=== PATIENT | female | born 1955 | race Caucasian/White ===

== ENCOUNTER 2017-05-05 15:30 | Outpatient (RCR) | payer MEDICARE, MEDICAID, SELFPAY | END 2017-05-16 | LOC: INF 15:30 | PROVIDERS: Family Provider Student in an Organized Health Care Education/Training Program; PCP Family Medicine; Visit Provider Family Medicine | DX: Z45.2 Encounter for adjustment and management of vascular access device (principal) | CPT/HCPCS: 96523 ==

== ENCOUNTER → 2017-08-06 14:41 | Outpatient (CLI) | payer MEDICARE, MEDICAID, SELFPAY ==
--- NOTE | 2017-08-06 15:02 | DI.MG.S_ITS ---
BILATERAL DIGITAL DIAGNOSTIC MAMMOGRAM POST LUMPECTOMY: 08/06/2017 CLINICAL: Left lump with axillary swelling and pain. Family history of breast cancer. Personal history of breast cancer. Comparison is made to exams dated: 02/17/2014 mammogram and 06/26/2009 mammogram - [facility]. There are scattered fibroglandular elements in both breasts. No significant masses, calcifications, or other findings are seen in either breast. IMPRESSION: INCOMPLETE: NEEDS ADDITIONAL IMAGING EVALUATION There is no abnormality seen in the left breast to correspond with the palpable abnormality in the upper outer quadrant, however, ultrasound is recommended. There is no abnormality seen in the left breast to correspond with the pain in the outer aspect, however, clinical followup is recommended. This exam was interpreted at Station ID: [id number]. NOTE: For mammograms, a report in lay terms will be sent to the patient. Approximately 15% of breast malignancies will not be visualized mammographically. In the management of a palpable breast mass, a negative mammogram must not discourage biopsy of a clinically suspicious lesion. Electronically Signed By: Fabio gurrola/catrachita:08/06/2017 15:59:46 letter sent: Need Ultrasound ACR BI-RADS Category 0: Incomplete [id number]
== END ==
PROVIDERS: Family Provider Student in an Organized Health Care Education/Training Program; PCP Family Medicine; Visit Provider Family Medicine
DX: R92.8 Other abnormal and inconclusive findings on diagnostic imaging of breast (principal); N64.4 Mastodynia; N63.21 Unspecified lump in the left breast, upper outer quadrant; Z85.3 Personal history of malignant neoplasm of breast; Z80.3 Family history of malignant neoplasm of breast
CPT/HCPCS: 77066; G0279

== ENCOUNTER → 2017-08-13 16:07 | Outpatient (CLI) | payer MEDICARE, MEDICAID, SELFPAY ==
--- NOTE | 2017-08-13 16:14 | DI.US.S_ITS ---
ULTRASOUND OF LEFT BREAST: 08/13/2017 CLINICAL: Palpable left breast lump and focal pain. Comparison is made to exams dated: 08/06/2017 mammogram, 06/25/2017 ultrasound - [facility], and 02/17/2014 mammogram - [facility]. Ultrasound of the left breast was performed on the area of interest. Guerra scale images of the real-time examination were reviewed. There are biopsy clips left breast at 1 o'clock that likely correlate with palpable abnormality. IMPRESSION: NEGATIVE There is no sonographic evidence of malignancy. A 1 year screening mammogram is recommended. Electronically Signed By: Melodie Medrano M.D. lk/:08/13/2017 17:54:57 letter sent: Clinical Evaluation Ultrasound BI-RADS: 1 Negative
== END ==
PROVIDERS: Family Provider Student in an Organized Health Care Education/Training Program; PCP Family Medicine; Visit Provider Family Medicine
DX: R92.8 Other abnormal and inconclusive findings on diagnostic imaging of breast (principal); N64.4 Mastodynia; N63.21 Unspecified lump in the left breast, upper outer quadrant
CPT/HCPCS: 76642

== ENCOUNTER 2017-09-09 13:13 | Day surgery (SDC) | payer MEDICARE, MEDICAID, SELFPAY ==
--- NOTE | 2017-09-09 | PATH_ITS ---
[facility] Accession Number: [id number] . 01 Material submitted: . PART A: GE JUNCTION PART B: ASCENDING COLON POLYP . 02 Diagnosis: A. Gastroesophageal Junction, Biopsy: Squamocolumnar junctional mucosa with no diagnostic abnormality. Negative for specialized intestinal metaplasia on alcian blue stain. Negative for dysplasia or malignancy. . B. Ascending Colon Polyp: Tubular adenoma. MRV/09/14/2017 . 02 Electronically signed: . Cirilo Evans MD, PhD, Pathologist NPI- [id number] . 01 Gross description: . Part A: GE JUNCTION: Received in formalin are 2 fragment(s) of jara, soft tissue measuring 0.2 x 0.2 x 0.2 cm to 0.2 x 0.2 x 0.1 cm submitted entirely in 1 cassette(s) Part B: ASCENDING COLON POLYP: Received in formalin are 2 fragment(s) of jara, soft tissue measuring 0.2 x 0.2 x 0.2 cm to 0.2 x 0.1 x 0.1 cm submitted entirely in 1 cassette(s) /CKI /CKI . 02 Microscopic: . Part A: An alcian blue stain is performed to evaluate for specialized intestinal metaplasia and is negative for goblet cells. A control stain shows appropriate reactivity. . 02 Pathologist provided ICD-10: D12.2, K21.9 . 02 CPT . 438950, 469467, 368204 Performed at: 01 [facility] [address] [place] [id number] MD Fabio Sahu MD Phone: [phone] Performed at: [address] [facility] [facility] [address] [place], [place] [id number] MD Mariano Machado MD Phone: [phone]
[2017-09-09 14:32] VITALS: BMI 18.3
--- NOTE | 2017-09-09 15:29 | PM.HP.1 ---
History of Present Illness Date Patient Seen: 09/09/17 Time Patient Seen: 15:29 Chief complaint: COLONOSCOPY/EGD W BIOPSY [id number] Narrative: History of Taylor's esophagus and history of colon polyps Patient History Medical History Cervical herniation (Acute) Cervical spine disease (Acute) Foot pain (Acute) Frequent UTI (Acute) History of Taylor's esophagus (Acute) History of COPD (Acute) History of GI bleed (Acute) History of abnormal cervical Pap smear (Acute) History of actinic keratoses (Acute) History of alopecia (Acute) History of anemia (Acute) History of anxiety (Acute) History of arthritis (Acute) History of asthma (Acute) History of breast cancer (Acute) History of carpal tunnel syndrome (Acute) History of chickenpox (Acute) History of colon polyps (Acute) History of depression (Acute) History of diverticulitis (Acute) History of endometriosis (Acute) History of fibromyalgia (Acute) History of genital warts (Acute) History of hepatitis A (Acute) History of hyperparathyroidism (Acute) History of hypothyroidism (Acute) History of kidney disease (Acute) History of measles (Acute) History of migraine headaches (Acute) History of mumps (Acute) History of osteopenia (Acute) History of painful menstruation (Acute) History of posttraumatic stress disorder (PTSD) (Acute) History of retroperitoneal fibrosis (Acute) History of rosacea (Acute) History of tinnitus (Acute) History of vertigo (Acute) Surgical History History of bowel resection (Acute) History of nephrectomy (Acute) History of bowel resection History of nephrectomy Port catheter in place Status post appendectomy Status post breast lumpectomy Status post parathyroidectomy Status post tubal ligation Family & Social History Social History: household members other Meds Home Medications Medication Instructions Recorded Confirmed Type esomeprazole magnesium [Nexium] 40 mg PO QDAY #90 cap 12/01/16 09/09/17 Rx fluticasone [Flonase Allergy 1 spray INTRANASAL QDAY #1 bot 01/27/17 09/09/17 Rx Relief] levothyroxine 88 mcg tablet 88 mcg PO QAM #90 tab 07/17/17 09/09/17 Rx alprazolam 1 mg tablet 1 mg PO QDAYP PRN #90 tab 07/21/17 09/09/17 Rx clonazepam 1 mg tablet 1 mg PO QDAY #90 tab 07/21/17 09/09/17 Rx albuterol sulfate HFA 90 2 puff INHALATION Q4HP PRN #1 inh 08/06/17 09/09/17 Rx mcg/actuation aerosol inhaler oxycodone 10 mg PO Q8HP PRN 09/09/17 09/09/17 History promethazine 25 mg PO Q6HP PRN 09/09/17 09/09/17 History Allergies Allergy/AdvReac Type Severity Reaction Status Date / Time prednisone [PREDNISONE] Allergy Mild very Unverified 05/27/17 12:36 sensitive to adhesive [ADHESIVE] Allergy Unknown Unverified 05/27/17 12:36 cefuroxime [From CEFTIN] Allergy Unknown Unverified 05/27/17 12:36 ciprofloxacin [From CIPRO] Allergy Unknown Unverified 05/27/17 12:36 latex [LATEX] Allergy Unknown Unverified 05/27/17 12:36 monosodium glutamate Allergy Unknown Unverified 05/27/17 12:36 [MONOSODIUM GLUTAMATE] nickel [NICKEL] Allergy Unknown Unverified 05/27/17 12:36 oxycodone [From OXYCONTIN] Allergy Unknown THE TIME Unverified 05/27/17 12:36 RELEASE RESEASLED ALL AT ONCE Exam Narrative Exam Narrative: Oropharynx free of lesion Chest clear to auscultation and percussion Cardiac exam reveals no S3 or murmur Assessment & Plan Plan: Assessment/Plan Narrative: One. History of adenomatous colon polyps with 5 found on last colonoscopy. Need for follow-up colonoscopy at a 3 year interval 2. History of Taylor's esophagus though with negative endoscopy since. Rule out Taylor's esophagus If Taylor's is not present on these biopsies then she should have no further screening. Colonoscopy follow-up with repeat based on the number of polyps found.
--- NOTE | 2017-09-09 16:23 | PM.OP.ENDO ---
Operative Date/Time/Diagnoses Date of procedure: 09/09/17 Time of procedure: 16:23 Pre-op diagnosis: See indication and findings Procedure & Clinicians Study performed: EGD and colonoscopy Same procedure as scheduled: Yes Indications: History of Taylor's esophagus and history of adenomatous colon polyps Surgeon: Jenae Bettencourt Procedure Notes Procedure in detail: After informed consent was obtained the patient was placed in left lateral decubitus position. Video upper scope was placed into the oropharynx and gently bypassing the endotracheal tube was passed into the esophagus. The esophagus stomach and duodenum were carefully examined. On withdrawal retroflexed view the GE junction was performed. The scope was removed the patient tolerated the procedure well The patient was then turned and colonoscope substituted. This easily passed the cecum. Preparation was good. On slow withdrawal mucosa was carefully examined. The scope was removed and the patient tolerated the procedure well Blood loss none Complications none Sedation general as per anesthesia Findings EGD 1. Distal esophagus appearing really quite normal. We deflated the top of the GB. Are above virtually every area of the squamocolumnar junction. There is 1 small 2-3 mm area that may extend slightly above it and this was biopsied. Otherwise no evidence for Taylor's esophagus at all. 2. No hiatal hernia 3. Striped distal gastric erythema 4. Normal duodenal bulb and sweep Colonoscopy 1. 5 mm polyp in the mid ascending colon cold biopsy removed completely 2. Scattered diverticulosis 3. Internal hemorrhoids 4. Otherwise negative colonoscopy to cecum Patient will be sent biopsy results by mail. I do not think she should have follow-up upper endoscopy but will need colonoscopy in 5 years.
[2017-09-09 16:30] VITALS: BP 100/67; PULSE 62; RESP 15; TEMP 36.7; O2SAT 97
[2017-09-09 16:36] VITALS: BP 102/65; PULSE 75; RESP 14; O2SAT 97
[2017-09-09 16:41] VITALS: BP 110/60; PULSE 84; RESP 18; O2SAT 97
[2017-09-09 16:48] VITALS: BP 102/60; PULSE 71; RESP 12; TEMP 36.6; O2SAT 97
[2017-09-09 17:00] VITALS: BP 103/62; PULSE 64; RESP 16; TEMP 36.6; O2SAT 98
--- NOTE | 2017-09-09 17:01 | SUR.PHASEI ---
stable pacu, report to jessica. voice/swallow intact, belly soft + bowel tones.
[2017-09-09 17:45] VITALS: BP 119/73; PULSE 68; RESP 16; TEMP 36.8; O2SAT 96
== END 2017-09-09 17:50 | disposition home or self-care (01) ==
PROVIDERS: Family Provider Student in an Organized Health Care Education/Training Program; PCP Family Medicine; Visit Provider Internal Medicine Gastroenterology
PROC: 0DJ08ZZ Inspection of Upper Intestinal Tract, Via Natural or Artificial Opening Endoscopic (ICD-10-PCS; CPT 43235; principal; 2017-09-09 15:00)
PROC: 0DJD8ZZ Inspection of Lower Intestinal Tract, Via Natural or Artificial Opening Endoscopic (ICD-10-PCS; CPT 45378; 2017-09-09 15:00)
DX: D12.2 Benign neoplasm of ascending colon (principal); Z87.19 Personal history of other diseases of the digestive system; K57.30 Diverticulosis of large intestine without perforation or abscess without bleeding; K64.8 Other hemorrhoids; K21.9 Gastro-esophageal reflux disease without esophagitis
CPT/HCPCS: 45380; 43239; 88305; 88313; J1100; J2405; J2704; J3010

== ENCOUNTER → 2018-02-15 17:38 | Outpatient (CLI) | payer MEDICARE, MEDICAID, SELFPAY ==
[2018-02-15 18:06] LABS: Add Manual Diff / Slide Review NO; Basophils Percent Auto 0.9 % (0-2); Eosinophils Percent Auto 0.8 % (2-4); Hemoglobin 13.2 g/dL (12.0-16.0); Lymphocytes Percent Auto 39.4 % (25-40); Mean Corpuscular HGB Conc 33.8 % (30-36); Mean Corpuscular Hemoglobin 31.6 PG (26-34); Mean Corpuscular Volume 93.5 fL (80-100); Monocytes Percent Auto 6.5 % (3-14); Neutrophils Absolute Auto 3100 /uL (1500-7000); Neutrophils Percent Auto 52.4 % (50-75); Platelet Count 239 X10^3/uL (150-400); Red Blood Cell Count 4.17 X10^6/uL (4.0-5.2); Red Cell Distribution Width 12.9 % (11.6-14.8)
[2018-02-15 18:22] LABS: Alanine Aminotransferase 39 IU/L (9-52); Albumin 4.8 g/dL (3.5-5.0); Albumin Globulin Ratio 1.8 (1.0-2.8); Alkaline Phosphatase 63 U/L (38-126); Aspartate Aminotransferase 36 IU/L (14-36); BUN Creatinine Ratio 24.4 (6-22); Bilirubin Total 0.5 mg/dL (0.2-1.3); Blood Urea Nitrogen 22 mg/dL (7-17); Calcium 9.5 mg/dL (8.4-10.2); Carbon Dioxide 29 mmol/L (22-32); Chloride 101 mmol/L (98-107); Estimated Glomerular Filt Rate > 60.0 mL/min (>60); Globulin 2.7 g/dL (1.7-4.1); Glucose 96 mg/dL (80-110); HEMOLYSIS < 15 (0-50); Potassium 4.4 mmol/L (3.4-5.1); Sodium 139 mmol/L (137-145); Total Protein 7.5 g/dL (6.3-8.2)
[2018-02-15 18:29] LABS: Rheumatoid Factor < 8.6 IU/mL (<12.0)
[2018-02-15 18:30] LABS: Erythrocyte Sedimentation Rate 7 MM/HR (0-20)
[2018-02-15 18:39] LABS: Vitamin D 25 Hydroxy (D3) 66.5 ng/mL (30.0-100.0)
[2018-02-15 19:11] LABS: Vitamin B12 530 pg/mL (239-931)
[2018-02-22 17:51] LABS: ANA Screen NEGATIVE (Negative); DNA Antibody Crithidia IFA NEGATIVE (Negative); Rheumatoid Factor <14 IU/mL; Sjogren Antiboday SS-A <1.0 NEG AI (<1.0 NEGATIVE); Sjogren Antiboday SS-B <1.0 NEG AI (<1.0 NEGATIVE); Sm Antibody <1.0 NEG AI (<1.0 NEGATIVE); Sm/RNP Antibody <1.0 NEG AI (<1.0 NEGATIVE)
== END ==
PROVIDERS: Family Provider Student in an Organized Health Care Education/Training Program; PCP Family Medicine; Visit Provider Family Medicine
DX: F32.9 Major depressive disorder, single episode, unspecified (principal); F41.9 Anxiety disorder, unspecified; J84.10 Pulmonary fibrosis, unspecified; M79.7 Fibromyalgia; N13.5 Crossing vessel and stricture of ureter without hydronephrosis; Z85.3 Personal history of malignant neoplasm of breast; M19.90 Unspecified osteoarthritis, unspecified site; E55.9 Vitamin D deficiency, unspecified
CPT/HCPCS: 36415; 80053; 82306; 82607; 84550; 85025; 85651; 86038; 86430

== ENCOUNTER → 2018-06-01 20:14 | Outpatient (CLI) | payer MEDICARE, MEDICAID, SELFPAY ==
[2018-06-01 20:29] LABS: Bacteria Urine None Seen
[2018-06-01 20:44] LABS: Add Manual Diff / Slide Review NO; Appearance Urine UA CLEAR; Basophils Absolute Auto 100 /uL (0-100); Bilirubin Urine UA NEGATIVE (NEGATIVE); Color Urine UA YELLOW; Eosinophils Absolute Auto 100 /uL (0-450); Eosinophils Percent Auto 1.3 % (2-4); Glucose Urine UA NEGATIVE (Negative); Hematocrit 42.2 % (36-46); Hemoglobin 13.9 g/dL (12.0-16.0); Ketones Urine UA NEGATIVE (NEGATIVE); Leukocyte Esterase Urine UA NEGATIVE (NEGATIVE); Lymphocytes Absolute Auto 2500 /uL (1100-4500); Lymphocytes Percent Auto 31.6 % (25-40); Mean Corpuscular HGB Conc 32.9 % (30-36); Monocytes Absolute Auto 600 /uL (0-900); Monocytes Percent Auto 7.2 % (3-14); Neutrophils Absolute Auto 4700 /uL (1500-7000); Neutrophils Percent Auto 58.9 % (50-75); Nitrite Urine UA NEGATIVE (Negative); Occult Blood Urine UA TRACE-LYSED (Negative); Platelet Count 227 X10^3/uL (150-400); Protein Urine UA NEGATIVE (Negative); Red Blood Cell Count 4.49 X10^6/uL (4.0-5.2); Red Cell Distribution Width 12.8 % (11.6-14.8); Urobilinogen Urine UA 0.2 E.U./dL (0.2); White Blood Cell Count 8.1 X10^3/uL (4.5-11.0)
[2018-06-01 20:57] LABS: RBC Urine 0-1/HPF (0-5/HPF); Squamous Epithelial Cell Urine 0-1 /HPF (0-5/HPF); WBC Urine 0-1/HPF (0-5/HPF)
[2018-06-01 20:58] LABS: Culture Indicated Urine Cult Not Indicated
[2018-06-01 21:16] LABS: Alanine Aminotransferase 22 IU/L (9-52); Albumin 4.8 g/dL (3.5-5.0); Albumin Globulin Ratio 1.7 (1.0-2.8); Alkaline Phosphatase 61 U/L (38-126); Aspartate Aminotransferase 31 IU/L (14-36); BUN Creatinine Ratio 28.9 (6-22); Bilirubin Total 0.4 mg/dL (0.2-1.3); Blood Urea Nitrogen 26 mg/dL (7-17); Calcium 9.7 mg/dL (8.4-10.2); Carbon Dioxide 29 mmol/L (22-32); Chloride 100 mmol/L (98-107); Estimated Glomerular Filt Rate > 60.0 mL/min (>60); Globulin 2.9 g/dL (1.7-4.1); Glucose 89 mg/dL (80-110); HEMOLYSIS < 15 (0-50); Potassium 4.5 mmol/L (3.4-5.1); Sodium 138 mmol/L (137-145); Total Protein 7.7 g/dL (6.3-8.2)
[2018-06-01 21:42] LABS: Vitamin D 25 Hydroxy (D3) 66.4 ng/mL (30.0-100.0)
[2018-06-01 21:55] LABS: Thyroid Stimulating Hormone 1.54 uIU/mL (0.47-4.68)
== END ==
PROVIDERS: Family Provider Student in an Organized Health Care Education/Training Program; PCP Family Medicine; Visit Provider Internal Medicine
DX: Z85.3 Personal history of malignant neoplasm of breast (principal); F41.9 Anxiety disorder, unspecified; M85.80 Other specified disorders of bone density and structure, unspecified site; Z00.00 Encounter for general adult medical examination without abnormal findings
CPT/HCPCS: 36415; 80053; 81001; 82306; 84443; 85025

== ENCOUNTER → 2018-09-08 10:46 | Outpatient (CLI) | payer MEDICARE, MEDICAID, SELFPAY ==
--- NOTE | 2018-09-08 | DI.NM.S_ITS ---
PROCEDURE: NM BONE SCAN WHOLE BODY RADIOPHARMACEUTICAL: 19.6 mCi Tc-99m MDP IV. INDICATIONS: History of breast ca TECHNIQUE: Delayed whole-body scintigrams were obtained approximately 3-4 hours after intravenous injection of radiotracer. Anterior and posterior views were acquired from vertex to feet. Additional left and right oblique views of the thoracic cage were obtained. COMPARISON: None. FINDINGS: No lesions are identified in skull, sternum, clavicles, scapulae, ribs, bony pelvis, and visualized shafts of the long bones. There is low level increased uptake in cervical, thoracic and lumbar spine with distribution indistinguishable from degenerative disc and facet disease; early metastasis to spine could be obscured by degenerative changes. There are foci of increased periarticular activity involving shoulders, sternoclavicular joints, elbows, wrists, hands, hips, SI joints, knees and feet, compatible with degenerative/arthritic changes. IMPRESSION: No scintigraphic findings to suggest osseous metastasis. Dictated by: Jennifer Doyle M.D. on 09/09/2018 at 9:31 Approved by: Jennifer Doyle M.D. on 09/09/2018 at 10:38
== END ==
PROVIDERS: Family Provider Student in an Organized Health Care Education/Training Program; PCP Internal Medicine; Visit Provider Internal Medicine
DX: C50.412 Malignant neoplasm of upper-outer quadrant of left female breast (principal)
CPT/HCPCS: 78306; 96523; A9503

== ENCOUNTER → 2018-09-08 15:30 | Oncology outpatient (ONC) | payer MEDICARE, MEDICAID, SELFPAY ==
[2017-08-06 16:15] LABS: Hematocrit 39.3 % (36-46); Hemoglobin 13.2 g/dL (12.0-16.0)
[2017-08-06 16:25] LABS: BUN Creatinine Ratio 33.8 (6-22); Blood Urea Nitrogen 27 mg/dL (7-17); Calcium 9.2 mg/dL (8.4-10.2); Carbon Dioxide 29 mmol/L (22-32); Chloride 103 mmol/L (98-107); Estimated Glomerular Filt Rate > 60.0 mL/min (>60); Glucose 88 mg/dL (80-110); HEMOLYSIS 17 (0-50); Potassium 4.4 mmol/L (3.4-5.1); Sodium 142 mmol/L (137-145)
[2017-08-06 17:00] LABS: Ferritin 24.5 ng/mL (11.1-264)
[2017-08-06 17:35] LABS: HEMOLYSIS 16 (0-50); Iron 69 ug/dL (37-170)
[2017-08-06 17:37] LABS: Creatinine Urine Random 12.2 mg/dL; Protein (Total) Urine Random 13 mg/dL (0-12); Protein Creatinine Ratio Urine 1.06 GRAM/24H
[2017-08-06 17:47] LABS: Percent Iron Saturation 19 % (15-50); Total Iron Binding Capacity 358 ug/dL (265-497); Transferrin 287 mg/dL (206-381)
[2017-08-08 14:22] LABS: Parathyroid Hormone Int 70 pg/mL (14-64)
[2018-02-15 15:20] LABS: Bacteria Urine None Seen; RBC Urine None Seen (0-5/HPF)
[2018-02-15 16:00] LABS: Hematocrit 37.3 % (36-46); Hemoglobin 12.6 g/dL (12.0-16.0)
[2018-02-15 16:07] LABS: BUN Creatinine Ratio 26.7 (6-22); Blood Urea Nitrogen 24 mg/dL (7-17); Calcium 9.2 mg/dL (8.4-10.2); Carbon Dioxide 27 mmol/L (22-32); Chloride 102 mmol/L (98-107); Estimated Glomerular Filt Rate > 60.0 mL/min (>60); Glucose 96 mg/dL (80-110); HEMOLYSIS < 15 (0-50); Potassium 4.5 mmol/L (3.4-5.1); Sodium 138 mmol/L (137-145)
[2018-02-15 16:09] LABS: Appearance Urine UA CLEAR; Bilirubin Urine UA NEGATIVE (NEGATIVE); Color Urine UA YELLOW; Glucose Urine UA NEGATIVE (Negative); Ketones Urine UA NEGATIVE (NEGATIVE); Leukocyte Esterase Urine UA NEGATIVE (NEGATIVE); Nitrite Urine UA NEGATIVE (Negative); Occult Blood Urine UA NEGATIVE (Negative); Protein Urine UA NEGATIVE (Negative); Specific Gravity Urine UA <=1.005 (1.000-1.035); Urobilinogen Urine UA 0.2 E.U./dL (0.2)
[2018-02-15 16:26] LABS: HEMOLYSIS 35 (0-50); Total Iron Binding Capacity 311 ug/dL (265-497); Transferrin 265 mg/dL (206-381)
[2018-02-15 16:31] LABS: Culture Indicated Urine Cult Not Indicated; Squamous Epithelial Cell Urine 0-1 /HPF; WBC Urine 0-1/HPF (0-5/HPF)
[2018-02-15 16:40] LABS: Ferritin 25.4 ng/mL (11.1-264)
[2018-02-15 17:15] LABS: Creatinine Urine Random 15.5 mg/dL
[2018-02-15 17:17] LABS: Iron 70 ug/dL (37-170); Percent Iron Saturation 23 % (15-50)
[2018-02-15 17:20] LABS: Microalbumi Creatinin Ratio Ur 38.7 ug/mg CR (<30); Microalbumin Urine Random < 0.6 mg/dL (0-1.6)
[2018-02-22 17:27] LABS: Parathyroid Hormone Int 63 pg/mL (14-64)
--- NOTE | 2018-07-07 16:27 | PC.NURSE ---
This nurse called patient as clinic scheduler was concerned she had cancelled her port flush twice and was sounding very lethargic on phone. Patient reached at 1600 today after trying to reach her in the am. She stated she had just gotten up and has been feeling extremely fatigued and lack of appetite. She states she has been seen by new PCP Annamarie Mesa and that she wants her to have a bone scan to rule out mets. She states being able to manage her pain fine with her oxycodon. She is drinking about 3L. fluid per day but not getting much of exercise. This nurse said she would speak to schedulers about patients wished for appt date and time of 07/14 at 1540 and have them call to verify the appt. Nurse also encouraged her to do a small bit of walking outside and increase very slowly as tolerated and that this could help with fatigue, also that she should follow up with her PCP. Patient voiced agreement and understanding.
--- NOTE | 2018-09-06 15:30 | ONC.SCHED ---
Called [facility]. I let them know that Ngoc needs a drs.Order for 10 port flushes for August 2018 to August 2019. YAYO will fax over order
== END ==
PROVIDERS: Family Provider Student in an Organized Health Care Education/Training Program; PCP Family Medicine; Visit Provider Family Medicine
DX: C50.412 Malignant neoplasm of upper-outer quadrant of left female breast (principal)
CPT/HCPCS: 36415; 36592; 80048; 80053; 81001; 82043; 82306; 82570; 82607; 82728; 83540; 83550; 83970; 84156; 84550; 85014; 85018; 85025; 85651; 86038; 86430; 96523

== ENCOUNTER → 2018-11-04 22:09 | Outpatient (CLI) | payer MEDICARE, MEDICAID, SELFPAY ==
[2018-11-04 22:37] LABS: Hematocrit 40.2 % (36-46); Hemoglobin 13.5 g/dL (12.0-16.0)
[2018-11-04 23:10] LABS: Creatinine Urine Random 45.7 mg/dL; Protein (Total) Urine Random 10 mg/dL (0-12); Protein Creatinine Ratio Urine 0.21 GRAM/24H
[2018-11-04 23:46] LABS: HEMOLYSIS < 15 (0-50); Iron 79 ug/dL (37-170)
[2018-11-04 23:47] LABS: BUN Creatinine Ratio 21.1 (6-22); Blood Urea Nitrogen 19 mg/dL (7-17); Calcium 9.7 mg/dL (8.4-10.2); Carbon Dioxide 30 mmol/L (22-32); Chloride 102 mmol/L (98-107); Estimated Glomerular Filt Rate > 60.0 mL/min (>60); Glucose 90 mg/dL (80-110); HEMOLYSIS < 15 (0-50); Potassium 4.3 mmol/L (3.4-5.1); Sodium 140 mmol/L (137-145)
[2018-11-04 23:56] LABS: Percent Iron Saturation 24 % (15-50); Total Iron Binding Capacity 326 ug/dL (265-497); Transferrin 274 mg/dL (206-381)
[2018-11-10 07:38] LABS: Parathyroid Hormone Int 11 pg/mL (14-64)
== END ==
PROVIDERS: Family Provider Student in an Organized Health Care Education/Training Program; PCP Internal Medicine; Visit Provider Student in an Organized Health Care Education/Training Program
DX: N05.9 Unspecified nephritic syndrome with unspecified morphologic changes (principal); D50.0 Iron deficiency anemia secondary to blood loss (chronic); D64.9 Anemia, unspecified; N25.81 Secondary hyperparathyroidism of renal origin; R80.9 Proteinuria, unspecified
CPT/HCPCS: 36415; 80048; 82570; 82728; 83540; 83550; 83970; 84156; 85014; 85018